=== PATIENT | male | born 1935 | race Caucasian/White ===

== ENCOUNTER → 2019-01-20 | Outpatient (CLI) | payer MEDICARE ==
--- NOTE | 2019-01-20 11:41 | XR ---
EXAMINATION TYPE: XR cervical spine limited DATE OF EXAM: 01/20/2019 COMPARISON: None HISTORY: Osteoarthritis left neck pain TECHNIQUE: Complete cervical spine, 3 view supplemented with submental vertex transthoracic swimmer's views. FINDINGS: Prevertebral space is normal. Disc space narrowing is present C3-4 and C5-6. Facet degenera tive changes are present. The odontoid on the submental vertex view is normal. IMPRESSION: 1. Degenerative disc changes greatest at C5-6 and C3-4. 2. Facet changes are evident. There may be foraminal narrowing present. Consider MRI for additional e valuation.
== END | disposition home or self-care (01) ==
LOC: RADXRMAIN 10:23
PROVIDERS: ATTEND Family Medicine
DX: M50.31 Other cervical disc degeneration, high cervical region (principal); M46.92 Unspecified inflammatory spondylopathy, cervical region
CPT/HCPCS: 72040

== ENCOUNTER → 2019-01-28 | Outpatient (CLI) | payer MEDICARE ==
--- NOTE | 2019-01-29 04:43 | XR ---
EXAMINATION TYPE: XR chest 2V DATE OF EXAM: 01/28/2019 COMPARISON: 10/07/2008 HISTORY: 83-year-old male encountered for surgical aftercare. TECHNIQUE: Frontal and lateral views FINDINGS: Heart is enlarged. Left hilar soft tissue prominence. Diffuse interstitial changes. Patchy peripheral left basilar opacity. Median sternotomy wires. Annuloplasty ring. Some scattered tiny surgical clips along the mediastinum. No retained epicardial pacer leads are identified. IMPRESSION: 1. Mild cardiomegaly. Prior median sternotomy with annuloplasty ring and tiny surgical clips along th e mediastinum. No retained epicardial pacer leads seen. 2. Left hilar soft tissue prominence. Differential considerations include underlying lymphadenopathy, large pulmonary artery related to pulmonary arterial hypertension, or left perihilar mass. Contrast enhanced CT can further evaluate. 3. Diffuse interstitial changes, possible bronchitis or asthma or mild pulmonary vascular congestion. 4. Patchy left basilar opacity, likely atelectasis.
== END | disposition home or self-care (01) ==
LOC: RADXRMAIN 16:24
PROVIDERS: ATTEND Family Medicine
DX: Z48.812 Encounter for surgical aftercare following surgery on the circulatory system (principal); I51.7 Cardiomegaly; J98.4 Other disorders of lung
CPT/HCPCS: 71046

== ENCOUNTER → 2019-02-01 | Outpatient (CLI) | payer MEDICARE ==
[2019-02-01 12:36] LABS: African American GFR (CKD) >90 (>60 ml/min/1.73 sqM); Blood Urea Nitrogen 19 mg/dL (9-20)
--- NOTE | 2019-02-01 13:42 | CT ---
EXAMINATION TYPE: CT chest w con DATE OF EXAM: 02/01/2019 COMPARISON: None HISTORY: Abnormal cxr. No chest complaints at time of scan. CT DLP: 339.5 mGycm Automated exposure control for dose reduction was used. CONTRAST: CT scan of the chest is performed with IV Contrast, patient injected with 100 mL of Isovue M300. FINDINGS: LUNGS: There is evidence of moderate cardiomegaly. There is evidence for dilatation of the pulmonary arteries or the right main pulmonary artery measures 2.8 cm while the left measures 3.7 cm. The main pulmonary artery measures 3.1 cm. The lungs are clear and free of infiltrate or nodule. Median sterno timothy changes noted. MEDIASTINUM: There are no greater than 1 cm hilar or mediastinal lymph nodes. No pericardial effusi on is seen. Thoracic aorta is of normal caliber. The heart is not enlarged. UPPER ABDOMEN: Large cyst partially imaged upper pole left kidney. OTHER: Thyroid nodularity is calcified nodule right thyroid lobe. IMPRESSION: 1. Pulmonary arterial hypertension and cardiomegaly. 2. The lungs are clear.
== END | disposition home or self-care (01) ==
LOC: RADCTMAIN 11:51
PROVIDERS: ATTEND Family Medicine
DX: I27.21 Secondary pulmonary arterial hypertension (principal); I51.7 Cardiomegaly
CPT/HCPCS: 82565; 84520; 71260; 36415; Q9967

== ENCOUNTER → 2019-02-15 | Outpatient (CLI) | payer MEDICARE ==
--- NOTE | 2019-02-15 15:41 | US ---
EXAMINATION TYPE: US thyroid st tissue head/neck DATE OF EXAM: 02/15/2019 COMPARISON: CT 2019 CLINICAL HISTORY: N28.1 Cyst of kidney, E04.1 thyroid nodule. Right lobe nodule seen on recent CT GLAND SIZE: Right Lobe: 6.0 x 1.9 x 2.7 cm Overall Parenchyma: heterogenous Left Lobe: 5.0 x 1.6 x 1.5 cm Overall Parenchyma: heterogeneous Isthmus Thickness: 0.3 cm NODULES RIGHT: # of nodules measured on right: 2 1. 2.4 X 1.4 x 2.1 cm isoechoic solid nodule with 0.7cm calcification seen at the mid pole with poo rly defined margins. This nodule is wider than tall and shows intranodular vascularity. Prior size: no previous 2. 1.4 X 0.8 x 1.3 cm isoechoic mixed nodule at the upper pole with poorly defined margins. This nod ule is wider than tall and shows intranodular vascularity. Prior size: no previous LEFT: # of nodules measured on left: 1 1. 0.7 X 0.5 x 0.6 cm complex cystic nodule at the upper pole with well-defined margins. This nodul e is wider than tall and shows intranodular vascularity. Prior size: no previous ISTHMUS: # of nodules measured in the isthmus: 0 Bilateral neck scanned, no evidence of lymphadenopathy. Heterogeneous gland with enlarged right lobe and bilateral nodules described above. IMPRESSION: 1. Large right lobe thyroid nodule 2. Additional nodules present bilaterally
--- NOTE | 2019-02-15 15:46 | US ---
EXAMINATION TYPE: US kidneys/renal and bladder DATE OF EXAM: 02/15/2019 COMPARISON: CT 2019 CLINICAL HISTORY: N28.1 Cyst of kidney, E04.1 thyroid nodule. Left kidney cyst seen on recent CT EXAM MEASUREMENTS: Right Kidney: 12.7 x 7.1 x 6.1 cm Left Kidney: 16.6 x 8.6 x 10.2 cm Right Kidney: mildly enlarged, cortical thinning, multiple tiny echogenic foci scattered throughout, 1.7cm exophytic cyst superior pole Left Kidney: enlarged, multiple cysts with largest measuring 8.6 x 7.1 x 8.2cm Bladder: wnl Bilateral Jets seen: right jet seen, left jet not seen IMPRESSION: 1. Multiple left renal cysts 2. Few scattered small right renal cysts
== END | disposition home or self-care (01) ==
LOC: RADUSWWP 14:43
PROVIDERS: ATTEND Family Medicine
DX: N28.1 Cyst of kidney, acquired (principal); E04.1 Nontoxic single thyroid nodule
CPT/HCPCS: 76536; 76770

== ENCOUNTER → 2021-11-08 | Outpatient (CLI) | payer MEDICARE ==
[2021-11-08 14:38] LABS: African American GFR (CKD) 70.6 (60.0-200.0); Blood Urea Nitrogen 20.5 mg/dL (9.0-27.0); Non-African American GFR(CKD) 60.9 (60.0-200.0); Potassium 4.4 mmol/L (3.5-5.5)
[2021-11-08 15:21] LABS: INR 2.33 (0.90-1.11); Prothrombin Time 24.6 sec (9.9-11.9)
[2021-11-08 15:44] LABS: HCT 43.6 % (39.6-50.0); HGB 14.1 g/dL (13.0-17.0); MCH 32.9 pg (27.0-32.0); MCHC 32.3 g/dL (32.0-37.0); MCV 101.9 fL (80.0-97.0); Mean Platelet Volume 11.1 fL (9.5-12.2); NRBC Per 100 WBC 0 /100 WBCS (0.0-0.0); Platelet Count 109 X 10*3/uL (140-440); RBC 4.28 X 10*6/uL (4.40-5.60); RDW 14.4 % (11.5-14.5); WBC 6.24 X 10*3/uL (4.50-10.00)
== END | disposition home or self-care (01) ==
LOC: LABPAT 09:38
PROVIDERS: ATTEND Internal Medicine Clinical Cardiac Electrophysiology
DX: Z01.812 Encounter for preprocedural laboratory examination (principal); I48.11 Longstanding persistent atrial fibrillation
CPT/HCPCS: 80051; 82565; 84520; 85027; 85610

== ENCOUNTER 2021-12-04 13:19 | Day surgery (SDC) | payer MEDICARE ==
[2021-12-04] MEDS ORDERED: SODIUM CHLORIDE 0.9% 1,000 ML IV ONE (14:13)
[2021-12-04 14:23] LABS: INR 3.2 (<1.2); Prothrombin Time 32.1 sec (9.0-12.0)
[2021-12-04] MEDS ORDERED: ROCURONIUM 10 MG/ML (5 ML VIAL) IV ONE (16:50)
[2021-12-04] MEDS ORDERED: HEPARIN SODIUM,PORCINE 5,000 UNIT/ML 1 ML VIAL ONE (16:50)
[2021-12-04] MEDS ORDERED: SUCCINYLCHOLINE CHLORIDE 200 MG/10 ML VIAL IV ONE (16:50)
[2021-12-04] MEDS ORDERED: fentaNYL (PF) 50 MCG/ML 2 ML AMP ONE (16:50)
[2021-12-04] MEDS ORDERED: PROPOFOL 10 MG/ML 20 ML VIAL IV ONE (16:50)
[2021-12-04] MEDS ORDERED: MIDAZOLAM 2 MG/2 ML VIAL ONE (16:50)
[2021-12-04] MEDS ORDERED: ATROPINE SULFATE 0.1 MG/ML 10ML SYRINGE ONE (16:50)
[2021-12-04] MEDS ORDERED: LIDOCAINE 1% INJ 10MG/ML (30 ML VIAL-PF) SQ ONE (17:16)
[2021-12-04] MEDS ORDERED: HEPARIN SODIUM (1,000 UNIT/ML) 1,000 UNIT in SODIUM CHLORIDE 0.9% 1,000 ML IRRIGATION ONE (17:40)
[2021-12-04] MEDS ORDERED: LACTATED RINGERS 1,000 ML IV ONE (18:53)
[2021-12-04] MEDS ORDERED: ACETAMINOPHEN TAB 325 MG TAB PO PRN (19:05)
--- NOTE | 2021-12-04 19:17 | P.EPPROC ---
- EP Procedure Note Electrophysiology Procedure Note: Diagnosis Typical atrial flutter Multiple other Atrial tachycardias from the left atrium, symptomatic status post mitral valve repair Right bundle branch block pattern Baseline LA interval 210 ms Likely antegrade slow pathway conduction giving the appearance of junctional rhythm at 70-80 beats a minute. This is most likely evidence of spontaneous dual AV albert physiology Procedures performed Diagnoses EP study CS pacing and recording Intracardiac echo 3-D mapping Atrial flutter ablation line left atrial mapping via PFO Plan Medical treatment for multiple atrial tachycardias in the left atrium Patient has a history of mitral valve surgery and Maze procedure He will require very detailed and prolonged mapping and ablation in the left atrium I will start amiodarone 400 mg by mouth daily for one month and then reduce the dose to 200 mg daily Hold off on metoprolol at this time Serial INRs one week following discharge and then every 2 weekly until they stabilize Continue antihypertensive therapy Continue Coumadin Details Patient was brought to the EP lab in a fasting state Written informed consent was obtained prior to procedure The right and left groins prepped and draped as a protocol CS cath was placed in the coronary sinus CS activation was concentric Original atrial cycle length was 416 ms Twelve-lead EKG was consistent with typical atrial flutter Intracardiac echocardiography was performed No pericardial effusion, no left atrial appendage thrombus Patient's INR 3.1 Mapping of the chemo tricuspid isthmus was performed RF ablation was performed There was termination of atrial flutter evidenced by a change in the pain morphology and a mild increase in the atrial cycle length Thereafter right atrial mapping was performed and during this the mapping catheters slipped into the left atrium via PFO Left atrial mapping was performed Activation mapping performed However while mapping the left atrium, as the catheter was placed on the posterior wall, a new atrial tachycardia was induced with a much shorter cycle length P wave is morphology in the inferior leads was negative and a very broad, upright P waves in lead V1 This is most likely mitral reentry At this point electrocardioversion was performed and initially the patient was in junctional rhythm in the 60s but subsequently converted to sinus rhythm with a normal LA interval Later he went into a rhythm with a prolonged LA interval and stated that way My impression is that he has an antegrade slow pathway conduction When conducting down the fast pathway his LA interval is around 210 ms LA interval 210 ms, right bundle branch block morphology of [place] QRS
[2021-12-04] MEDS ORDERED: ACETAMINOPHEN IV (For NPO) 1,000 MG in EMPTY BAG 1 BAG IVPB ONE (19:30)
[2021-12-04] MEDS: SODIUM CHLORIDE 0.9% 1,000 ML IV SCH (20:37)
[2021-12-04] MEDS: PANTOPRAZOLE 40 MG TABLET PO SCH (20:39)
[2021-12-04] MEDS ORDERED: WARFARIN 5 MG TAB PO ONE (21:00)
[2021-12-04] MEDS ORDERED: ATORVASTATIN 20 MG TAB PO SCH (21:00)
[2021-12-04] MEDS ORDERED: AMIODARONE 200 MG TAB PO SCH ×2 (21:00)
[2021-12-05] MEDS: SODIUM CHLORIDE 0.9% 1,000 ML IV SCH (01:47)
[2021-12-05 07:26] VITALS: BP 115/60; PULSE 64; RESP 14; TEMP 97.4
[2021-12-05 07:38] LABS: INR 3.8 (<1.2); Prothrombin Time 38.2 sec (9.0-12.0)
[2021-12-05] MEDS ORDERED: AMIODARONE 200 MG TAB PO SCH (09:00)
[2021-12-05] MEDS ORDERED: lisinopriL 5 MG TAB PO SCH (09:00)
[2021-12-05] MEDS ORDERED: SPIRONOLACTONE 25 MG TAB PO SCH (09:00)
[2021-12-05] MEDS ORDERED: FUROSEMIDE 20 MG TAB PO SCH (09:00)
[2021-12-05] MEDS: PANTOPRAZOLE 40 MG TABLET PO SCH (09:32)
--- NOTE | 2021-12-05 11:19 | P.DS ---
Providers Attending physician: Rashad Ng Primary care physician: [facility] Course: This is an 86-year-old male who underwent atrial flutter ablation with Dr. Ng. the patient is doing well postprocedure. He denies chest pain or pressure. Denies shortness of breath. Vital signs are stable.patient's INR as 3.[address] Ng, the patient is to hold his Coumadin tonight and resume tomorrow at a lower dose of 2.5 mg daily. Patient is also to discontinue his metoprolol. Patient will be discharged home on amiodarone 200 mg twice a day. Per Dr. Ng, the patient is stable for discharge home today. Please see EMR for further hospital course details. Discharge Diagnosis 1. Typical atrial flutter, s/p ablation Nurse practitioner note has been reviewed by physician. Signing provider agrees with the documented findings, assessment, and plan of care. Plan - Discharge Summary Discharge Rx Participant: No New Discharge Prescriptions: New Warfarin [Coumadin] 2.5 mg PO DAILY #30 tab Amiodarone [Cordarone] 200 mg PO BID #180 tab Continue Furosemide [Lasix] 20 mg PO QAM Simvastatin 40 mg PO HS lisinopriL [Zestril] 5 mg PO QAM allopurinoL [Zyloprim] 300 mg PO DAILY Spironolactone 25 mg PO QAM Pantoprazole [Protonix] 40 mg PO BID Discontinued Metoprolol Tartrate [Lopressor] 100 mg PO BID Warfarin [Coumadin] 2.5 mg PO MOFR Warfarin [Coumadin] 5 mg PO SUTUWETHSA Discharge Medication List Furosemide [Lasix] 20 mg PO QAM 12/03/21 [History] Pantoprazole [Protonix] 40 mg PO BID 12/03/21 [History] Simvastatin 40 mg PO HS 12/03/21 [History] Spironolactone 25 mg PO QAM 12/03/21 [History] allopurinoL [Zyloprim] 300 mg PO DAILY 12/03/21 [History] lisinopriL [Zestril] 5 mg PO QAM 12/03/21 [History] Amiodarone [Cordarone] 200 mg PO BID #180 tab 12/05/21 [Rx] Warfarin [Coumadin] 2.5 mg PO DAILY #30 tab 12/05/21 [Rx] Follow up Appointment(s)/Referral(s): Rashad Ng MD [STAFF PHYSICIAN] - 12/13/21 10:45 am (Appointment made at the main office ) Patient Instructions/Handouts: Cardiac Ablation (DC) Activity/Diet/Wound Care/Special Instructions: Post EP study - Ablation instructions 1. Keep access sites dry for 2 days. 2. No heavy lifting or straining for 2 days. 3. Avoid bending the hips repeatedly for 2 days. 4. You may go up and down stairs slowly Call if the following is noted 1. Bleeding, increasing swelling or pain at the access sites. 2. Increasing chest discomfort, especially upon taking a deep breath. 3. Increasing shortness of breath, at rest or with exertion. 4. Undue cough / phlegm 5. Difficulty or pain while swallowing. 6. Pain or change in color in the extremities. 7. Fever, chills, rigors. 8. Increasing headache or neurologic symptoms. 9. Dizziness, fainting, palpitations Stop metoprolol Start amiodarone 400 mg by mouth daily INRs checked next week with Dr. Ng Continue all other medications Discharge Disposition: HOME SELF-CARE
[2021-12-05] MEDS ORDERED: WARFARIN 5 MG TAB PO SCH (18:00)
[2021-12-05] MEDS ORDERED: WARFARIN 0.5 MG TAB PO ONE (18:00)
[2021-12-07] MEDS ORDERED: WARFARIN 2.5 MG TAB PO SCH (18:00)
== END 2021-12-05 11:40 | disposition home or self-care (01) ==
LOC: CATHEP 13:19 → 6NMEDSUR 18:55 → CATHEP 12-05 11:40
PROVIDERS: ATTEND Internal Medicine Clinical Cardiac Electrophysiology
DX: I48.3 Typical atrial flutter (principal); Z20.822 Contact with and (suspected) exposure to COVID-19; Z79.899 Other long term (current) drug therapy
CPT/HCPCS: 93662; 93653; 93655; 85610 ×2; 87635; C1759; C1894; C1769 ×2; C1760; C1766; C1730; C1732; J2250; J0330; J1644 ×2; J2001; J0461; J3010; J2704

== ENCOUNTER 2023-11-19 14:09 | Emergency (ER) | payer MEDICARE ==
[2023-11-19 14:25] VITALS: RESP 16
--- NOTE | 2023-11-19 16:00 | ED ---
Back Pain HPI - General Chief Complaint: Back Pain/Injury Stated Complaint: fall, back pain Time Seen by Provider: 11/19/23 16:00 Source: patient, family Mode of arrival: wheelchair Limitations: no limitations - History of Present Illness Initial Comments: 88-year-old male presented to ER with a chief complaint of a fall. Patient states he fell while moving something from his awning yesterday. He fell on his left side landing on an arm of a chair. He is reporting most of his pain over left flank. He does report multiple skin tears to bilateral upper extremities. Does take warfarin for atrial fibrillation. Tetanus is not up-to-date. He denies any shortness of breath, head injury, loss of consciousness. Denies any other injuries or complaints. - Related Data Home Medications Medication Instructions Recorded Confirmed Furosemide [Lasix] 20 mg PO QAM 12/03/21 12/04/21 Pantoprazole [Protonix] 40 mg PO BID 12/03/21 12/04/21 Simvastatin 40 mg PO HS 12/03/21 12/04/21 Spironolactone 25 mg PO QAM 12/03/21 12/04/21 allopurinoL [Zyloprim] 300 mg PO DAILY 12/03/21 12/04/21 lisinopriL [Zestril] 5 mg PO QAM 12/03/21 12/04/21 Previous Rx's Medication Instructions Recorded Amiodarone [Cordarone] 200 mg PO BID #180 tab 12/05/21 Warfarin [Coumadin] 2.5 mg PO DAILY #30 tab 12/05/21 Cyclobenzaprine [Flexeril] 5 mg PO HS #10 tab 11/19/23 Lidocaine 4% Patch 1 patch TOPICAL DAILY #30 patch 11/19/23 Allergies Allergy/AdvReac Type Severity Reaction Status Date / Time No Known Allergies Allergy Verified 11/19/23 14:26 Review of Systems ROS Statement: Those systems with pertinent positive or pertinent negative responses have been documented in the HPI. ROS Other: All systems not noted in ROS Statement are negative. Past Medical History Past Medical History: Atrial Flutter, Diabetes Mellitus, GERD/Reflux Additional Past Medical History / Comment(s): SEE DR. ALFONSO H & P. LEG CRAMPS. NIDM( PATIENT HAS LOST 30 LB, WAS TOLD TO STOP DIABETIC MEDS BY PCP). GOUT. History of Any Multi-Drug Resistant Organisms: None Reported Past Surgical History: Coronary Bypass/CABG Additional Past Surgical History / Comment(s): SEE DR. ALFONSO CARDIAC HX. BILATERAL CATARACTS/LENS Past Anesthesia/Blood Transfusion Reactions: No Reported Reaction Past Psychological History: No Psychological Hx Reported Smoking Status: Never smoker Past Alcohol Use History: None Reported Past Drug Use History: None Reported General Exam - General Exam Comments Initial Comments: Visual Physical Exam Vital signs reviewed General: Well-appearing, nontoxic, no acute distress. Head: Normocephalic, atraumatic Eyes: PERRLA, EOMI ENT: Airway patent Chest: Nonlabored breathing Skin: No visual rash, normal skin tone Neuro: Alert and oriented 3 Musculoskeletal: No gross abnormalities Limitations: no limitations General appearance: alert, in no apparent distress Head exam: Present: atraumatic, normocephalic, normal inspection Eye exam: Present: normal appearance, PERRL, EOMI. Absent: scleral icterus, conjunctival injection, periorbital swelling Respiratory exam: Present: normal lung sounds bilaterally. Absent: respiratory distress, wheezes, rales, rhonchi, stridor Cardiovascular Exam: Present: irregular rhythm, normal heart sounds GI/Abdominal exam: Present: soft, normal bowel sounds. Absent: distended, tenderness, guarding, rebound, rigid Extremities exam: Present: normal inspection, full ROM, normal capillary refill, other (3 cm skin tear to right forearm. No active bleeding. 2 1 cm skin tears to left forearm. No active bleeding. No surrounding erythema, purulent drainage or edema.). Absent: tenderness, pedal edema, joint swelling, calf tenderness Back exam: Present: normal inspection, tenderness (Left flank with overlying contusion. No focal bony tenderness.) Neurological exam: Present: alert, oriented X3, CN II-XII intact Skin exam: Present: warm, dry, intact, normal color. Absent: rash Course Vital Signs 11/19/23 11/19/23 14:23 18:32 Temperature 97.8 F 98 F Pulse Rate 93 99 Respiratory 16 16 Rate Blood Pressure 92/54 112/67 O2 Sat by Pulse 99 99 Oximetry Medical Decision Making - Medical Decision Making I performed the quick note portion of this chart. Electronically signed by Paul Moulton PA-C Was pt. sent in by a medical professional or institution (KALI Schmidt, DEVELOPER PROGRAMMER, urgent care, hospital, or correction...) When possible be specific @ -No Did you speak to anyone other than the patient for history (EMS, parent, family, police, friend...)? What history was obtained from this source @ - aiding in HPI and past medical history. Did you review nursing and triage notes (agree or disagree)? Why? @ -I reviewed and agree with nursing and triage notes Were old charts reviewed (outside hosp., previous admission, EMS record, old EKG, old radiological studies, urgent care reports/EKG's, correction records)? Report findings @ -No old charts were reviewed Differential Diagnosis (chest pain, altered mental status, abdominal pain women, abdominal pain men, vaginal bleeding, weakness, fever, dyspnea, syncope, headache, dizziness, GI bleed, back pain, seizure, CVA, palpatations, mental health, musculoskeletal)? @ -Fracture, dislocation, contusion, hematoma, intracranial hemorrhage, c oncussion, abrasion, laceration this list does not like to be all-inclusive EKG interpreted by me (3pts min.). @ -None X-rays interpreted by me (1pt min.). @ -Lumbar spine x-rays negative for acute process. CT interpreted by me (1pt min.). @ -None done U/S interpreted by me (1pt. min.). @ -None done What testing was considered but not performed or refused? (CT, X-rays, U/S, labs)? Why? @ -None What meds were considered but not given or refused? Why? @ -None Did you discuss the management of the patient with other professionals (professionals i.e. KALI Schmidt, DEVELOPER PROGRAMMER, lab, RT, psych nurse, social security benefits interviewer, radio station engineer, teacher, security flex officer, case checker)? Give summary @ -No Was smoking cessation discussed for >3mins.? @ -No Was critical care preformed (if so, how long)? @ -No Were there social determinants of health that impacted care today? How? (Homelessness, low income, unemployed, alcoholism, drug addiction, transportation, low edu. Level, literacy, decrease access to med. care, alf, rehab)? @ -No Was there de-escalation of care discussed even if they declined (Discuss DNR or withdrawal of care, Hospice)? DNR status @ -No What co-morbidities impacted this encounter? (DM, HTN, Smoking, COPD, CAD, Cancer, CVA, ARF, Chemo, Hep., AIDS, mental health diagnosis, sleep apnea, morbid obesity)? @ -Atrial fibrillation on eliquis Was patient admitted / discharged? Hospital course, mention meds given and route, prescriptions, significant lab abnormalities, going to OR and other pertinent info. @ -Discharged. 88 year old male presenting to the ER with a chief complaint of a fall from standing x 1 day. History and physical exam completed. Vitals within normal limits. Patient in no signs of acute distress. Exam remarkable for contusion to left flank. No abdominal tenderness with normal bowel sounds. No rebound or guarding. Bilateral upper and lower extremities neurovascular intact. There is multiple skin tears to bilateral upper extremities. No acute neurological findings on exam. Tetanus updated. Skin tears dressed with Adaptic dressing. Lumbar spine x-rays negative for acute process. Urine analysis showing 4+ glucose which is likely related to patient's diabetes. Pain believed to be musculoskeletal in nature. P.o. Tylenol given for pain control in the ER. Lidocaine patches and low-dose Flexeril prescribed. Strict return parameters discussed. Advise close follow-up with PCP. Patient and verbally expressed understanding and agreement with care plan. Case discussed with ED attending, Dr. Ojeda. Undiagnosed new problem with uncertain prognosis? @ -No Drug Therapy requiring intensive monitoring for toxicity (Heparin, Nitro, Insulin, Cardizem)? @ -No Were any procedures done? @ -No Diagnosis/symptom? @ -Contusion/skin tear Acute, or Chronic, or Acute on Chronic? @ -Acute Uncomplicated (without systemic symptoms) or Complicated (systemic symptoms)? @ -Uncomplicated Side effects of treatment? @ -No Exacerbation, Progression, or Severe Exacerbation? @ -No Poses a threat to life or bodily function? How? (Chest pain, USA, VT, pneumonia, PE, COPD, DKA, ARF, appy, cholecystitis, CVA, Diverticulitis, Homicidal, Suicidal, threat to staff... and all critical care pts) @ -No - Lab Data Lab Results 11/19/23 Range/Units 17:05 Urine Color Colorless Urine Appearance Clear (Clear) Urine pH 5.5 (5.0-8.0) Ur Specific [place] 1.014 (1.001-1.035) Urine Protein Negative (Negative) Urine Glucose (UA) 4+ H (Negative) Urine Ketones Negative (Negative) Urine Blood Negative (Negative) Urine Nitrite Negative (Negative) Urine Bilirubin Negative (Negative) Urine Urobilinogen <2.0 (<2.0) mg/dL Ur Leukocyte Esterase Negative (Negative) - Radiology Data Radiology results: report reviewed, image reviewed Disposition Clinical Impression: Contusion, Skin tear Disposition: HOME SELF-CARE Condition: Stable Instructions (If sedation given, give patient instructions): Contusion in Adults (ED) Additional Instructions: You may take [id number] Tylenol for pain control. You may wear lidocaine patch up to 12 hours and remove for 12 hours. Take Flexeril at night as this may make you drowsy. Follow-up with PCP in the next 1 to 2 days. Return to the ER for any new or worsening concerns. Prescriptions: Cyclobenzaprine [Flexeril] 5 mg PO HS #10 tab Lidocaine 4% Patch 1 patch TOPICAL DAILY #30 patch Is patient prescribed a controlled substance at d/c from ED?: No Referrals: Rick Nam MD [Primary Care Provider] - 1-2 days Time of Disposition: 18:41
[2023-11-19 17:22] LABS: Appearance,Urine Clear (Clear); Bilirubin,Urine Negative (Negative); Blood,Urine Negative (Negative); Color,Urine Colorless; Glucose,Urine (UA) 4+ (Negative); Ketones,Urine Negative (Negative); Leukocyte Esterase,Urine Negative (Negative); Nitrite,Urine Negative (Negative); PH, Urine 5.5 (5.0-8.0); Protein,Urine Negative (Negative); Specific Gravity,Urine 1.014 (1.001-1.035); Urobilinogen,Urine <2.0 mg/dL (<2.0)
--- NOTE | 2023-11-19 17:45 | XR ---
EXAMINATION TYPE: XR lumbar spine 2 or 3V DATE OF EXAM: 11/19/2023 COMPARISON: None HISTORY: Low back pain TECHNIQUE: 3 view lumbar spine FINDINGS: There are 5 lumbar type vertebral. There is narrowing of the L5-S1 disc height. There is lo ss of disc height and endplate changes and no to 3. Remaining Disc heights are preserved. Vertebral b bettina heights are preserved. Note is made of vascular calcification within the aorta. IMPRESSION: 1. Degenerative disc changes L2-3 and L5-S1
[2023-11-19 18:34] VITALS: BP 112/67; PULSE 99; TEMP 98
[2023-11-19] MEDS: DIPH,PERTUS(ACELL)TETVAC-LF 0.5 ML VIAL IM ONE (18:47)
[2023-11-19] MEDS: LIDOCAINE 4% PATCH TOPICAL ONE (18:48)
[2023-11-19] MEDS: ACETAMINOPHEN TAB 325 MG TAB PO STA (18:49)
== END 2023-11-19 18:58 | disposition home or self-care (01) ==
LOC: EC 14:09
CPT/HCPCS: 72100; 81003; 90471; 90715; 99284